=== PATIENT | female | born 1975 | race Two or more races ===

== ENCOUNTER 2024-02-01 15:35 | Emergency (ER) | payer OTHER ==
[~2024-02-01] VITALS: Ht 160 cm; Wt 116.1 kg
[2024-02-01] MEDS ORDERED: KETOROLAC TROMETHAMINE 60 MG VIAL IM ONE (17:45)
[2024-02-01] MEDS ORDERED: CLINDAMYCIN PHOSPHATE 150 MG/ML (600mg) IM ONE (17:45)
== END 2024-02-01 18:15 | disposition home or self-care (01) ==
LOC: ER 15:37
DX: H60.02 Abscess of left external ear (principal); Z87.09 Personal history of other diseases of the respiratory system; Z91.013 Allergy to seafood